=== PATIENT | female | born 1995 | race Caucasian/White ===

== ENCOUNTER 2021-03-20 00:54 | Emergency (ER) | payer OTHER, SELFPAY ==
[2021-03-20 00:59] VITALS: BP 120/71; PULSE 109; RESP 16; TEMP 36.9; O2SAT 100; BMI 31.7
--- NOTE | 2021-03-20 02:21 | EDS_ITS ---
HPI History of Present Illness Chief Complaint: ETOH Intox Informant: patient, friend and EMS Narrative Narrative: Patient was evidently drinking very heavily tonight. She was vomiting. A social security benefits interviewer noted this. They are required to call EMS. EMS then brought her in. Patient denies nausea now. However, patient is confused. She admits to drinking a lot. She states no one hurt her. But she has trouble saying where she is. Evidently she switched from CBD oil to something else recently. She also changed anxiety meds. I have no report or indication of suicidal thoughts. Her friend states she does not know anyone who hurt her. She was just vomiting a lot after heavy drinking at a sorority. [facility] Medical History Anxiety Depression Allergy/AdvReac Type Severity Reaction Status Date / Time shellfish derived Allergy Nausea/Vom/ Verified 03/20/21 01:03 Diarrhea Social History Smoking Status: Never smoker ROS ROS ED ROS Narrative Accurate review of systems is quite limited now. Patient is still a little bit confused. She denies all symptoms and review of systems but I cannot say for sure if this is accurate because of her overall level of confusion. EXAM Physical Exam Const Vital Signs: 03/20/21 00:59 03/20/21 03:14 Temperature 98.5 F Temperature Source Oral Pulse Rate 109 H 109 H Respiratory Rate 16 16 Blood Pressure 120/71 110/57 L Blood Pressure Mean 87 74 Pulse Ox 100 98 Oxygen Delivery Method Room Air Room Air Positive well nourished Constitutional Narrative: Patient is sleeping when I walk in the room. She has aroused with voice and a gentle shake. General Appearance ED: NAD HEENT Negative for trauma or tenderness Eyes PERRL Neck no JVD Resp normal respiratory effort and clear to auscultation bilaterally Cardio regular rate and regular rhythm GI normal to inspection, nondistended, normoactive bowel sounds and non-tender Palpation: soft Back/Spine no CVA tenderness Neuro Neuro Narrative: Patient is arousable to voice and gentle shake. She is oriented to name. Not place or time. She does state that she was drinking a lot tonight. Sensorium / Orientation: orientation impaired Psych Attitude: No agitated Mood & Affect: Negative for depressed, anxious or tearful Skin no rashes or lesions noted MDM MDM MDM Narrative Medical decision making narrative: Patient has been checked a couple times. She arouses. She still is little confused. She seems to be getting slightly better though. My suspicion is that this is a combination of alcohol but may have other chemicals involved. But she is nontoxic. Her vitals are normal. Patient is more alert. She can now tell me she goes to college at [employer]. 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 She told me the year is 2019. She was able to tell me that Yahir is the president. She still seems a little intermittently confused. However she is much improved. Her behavior is more consistent with alcohol and potential other intoxicants rather than just alcohol. But in either case she is arousable doing better and improving. Plan will be to get her home when she is even more alert and we have a safe ride for her. I checked patient again. She is awake. The lights are on. She knows she is in the hospital. She states she just drank a lot last night. Denies any drugs. She is much more lucid awake and appropriate at this time. I think she is safe to go home. She has no complaints. Discharge Plan Triage Chief Complaint: ETOH Intox ED Provider: Cm Núñez Dx/Rx/DC Orders Clinical Impression: Alcohol intoxication, History of nausea and vomiting Instructions: ED Alcohol Intoxication Primary Care Provider: Care Physician,No Primary Referrals: Elizabeth Webb MD [STAFF PHYSICIAN] - As Needed Town Doctor,Out of [NON-STAFF] - Disposition Disposition: Home, Self Care
[2021-03-20 03:14] VITALS: BP 110/57; PULSE 109; RESP 16; O2SAT 98
[2021-03-20 06:14] VITALS: BP 110/76; PULSE 92; RESP 18; O2SAT 99
== END 2021-03-20 06:14 | disposition home or self-care (01) ==
LOC: ED 05:30
PROVIDERS: Emergency Provider Emergency Medicine
DX: F10.129 Alcohol abuse with intoxication, unspecified (principal); Y90.9 Presence of alcohol in blood, level not specified; F32.9 Major depressive disorder, single episode, unspecified; F41.9 Anxiety disorder, unspecified; Z79.899 Other long term (current) drug therapy
CPT/HCPCS: 99284

== ENCOUNTER 2021-06-27 19:14 | Emergency (ER) | payer OTHER, SELFPAY ==
[2021-06-27 19:14] VITALS: BP 132/70; PULSE 107; RESP 18; TEMP 36.8; O2SAT 99; BMI 25.6
--- NOTE | 2021-06-27 20:21 | CM.ED ---
JOSE LUIS Note Referral Source: Case Find Referral Reason: No PCP JOSE LUIS reviewed registration face sheet and noted that patient did not have PCP. JOSE LUIS went into patient's room and spoke to patient. She said that she is a [employer] student and does not have a PCP in [place] but has one back home. JOSE LUIS provided patient with 2020 Healthcare Provider Directory. Patient voiced no issues or concerns. SW remains available. Vicky DAVILA
[2021-06-27] MEDS: 0.9% Normal Saline 1,000 ML 999 ML IV (21:16)
[2021-06-27] MEDS: Ondansetron 4 MG/2 ML Vial IV (21:16)
[2021-06-27 21:21] LABS: Absolute Lymphocyte Count 1.58 X10^3/uL (0.83-4.51); Absolute Neutrophil Count 13.6 X10^3/uL (2.0-7.7); Basophil# 0.09 X10^3/uL; Basophil% 0.6 % (0-1); Hematocrit 40.2 % (37-47); Hemoglobin 12.4 g/dL (12.0-15.0); Lymphocyte # 1.58 X10^3/ul (0.83-4.51); Mean Corp Hgb Conc 30.8 g/dL (32-36); Mean Corpuscular Hgb 21.9 pg (27.0-32.0); Mean Corpuscular Volume 70.9 fL (81-99); Mean Platelet Vol. 10.3 fl (6.2-12.0); Monocyte# 0.51 X10^3/uL; Monocyte% 3.2 % (0-10); NRBC Flagged by Analyzer 0 % (0-5); Neutrophil # 13.57 X10^3/uL (2.7-7.7); Neutrophil % 85.8 % (47-70); Platelet Count 439 K/mm3 (150-450); RBC Distribution Width CV 16.7 % (11.6-14.6); RBC Distribution Width SD 41.5 fl (35.1-43.9); Red Blood Count 5.67 M/mm3 (4.2-5.4); White Blood Count 15.8 K/mm3 (4.4-11.0)
[2021-06-27 21:49] LABS: Bacteria 0 SEEN /hpf (None Seen); Red Blood Cells-Urine 0 SEEN /hpf (0-5); White Blood Cells 0 SEEN /hpf (0-5)
[2021-06-27 21:53] LABS: Color, Urine Yellow (Yellow); Glucose, Dipstick Normal (Normal); Leukocyte Esterase-Dipstick Negative /ul (Negative); Nitrite-Dipstick Negative (Negative); Occult Blood-Urine 10 /ul (Negative); Protein-Dipstick 15 mg/dl (Negative); Urine Bilirubin Dipstick Negative (Negative); Urine Clarity Clear (Clear); Urine Urobilinogen Normal (Normal)
[2021-06-27 21:58] LABS: AST(SGOT) 18 U/L (15-37); Alanine Aminotransfer ALT/SGPT 29 U/L (13-56); Albumin, Serum 3.5 g/dL (3.2-5.0); Alkaline Phosphatase 73 U/L (45-117); Anion Gap 7 (5-15); BUN 8 mg/dL (7-18); BUN/Creat Ratio 12.4 RATIO (10-20); Bilirubin, Direct 0.11 mg/dL (0.00-0.30); Calcium,Total 9.5 mg/dL (8.5-10.1); Chloride 108 mmol/L (98-107); Creatinine, Serum 0.64 mg/dL (0.55-1.02); EST Glomerular Filtration Rate 123 mL/min (>60); Est Glom Filt Rate - Afr Amer 149 mL/min (>60); Estimated Creatinine Clearance 109.97 ml/min; Glucose 96 mg/dL (74-106); Lipase 58 U/L (73-393); Protein, Total 8.5 g/dL (6.4-8.2); Sodium Level 140 mmol/L (136-145)
[2021-06-27 22:22] VITALS: BP 112/78; PULSE 104; RESP 16; O2SAT 96
[2021-06-27 22:47] LABS: Ketone-Dipstick 150 mg/dl (Negative)
[2021-06-27 22:48] LABS: Mucous, Urine 2+ /hpf (<or=2+); Squamous Epithelial Cells - UA 0-5 SEEN /hpf (5-10)
[2021-06-27 22:49] LABS: Internal QC Validated? YES +Cl - CLEAR BKGD; Pregnancy, Urine Negative Negative
--- NOTE | 2021-06-27 23:00 | EDS_ITS ---
HPI History of Present Illness Chief Complaint: Nausea/Vomiting Narrative Narrative: Pt states that she was fine yesterday then began with bouts of N/V this morning. She states that she has not been able to keep anything down and has concern for dehydration. She denies any sick contacts [facility] Medical History (Updated 06/27/21 @ 23:[address] Christopher Blair, DO) Anxiety AVM (arteriovenous malformation) brain Chronic migraine with aura Depression GERD (gastroesophageal reflux disease) Home Medications esomeprazole magnesium 20 mg PO DAILY PRN 06/27/21 [History Last Taken Unknown] ondansetron 4 mg PO Q8H PRN #21 tab 06/27/21 [Rx Last Taken Unknown] ubrogepant [Ubrelvy] 100 mg PO PRN PRN 06/27/21 [History Last Taken Unknown] Allergy/AdvReac Type Severity Reaction Status Date / Time shellfish derived Allergy Nausea/Vom/ Verified 06/27/21 19:16 Diarrhea Social History Smoking Status: Never smoker ROS ROS ED Constitutional Constitutional ED: Denies chills or fever(s) ENT ENT ED: Denies sore throat Cardiovascular Cardiovascular: Denies chest pain Respiratory/Chest Respiratory/Chest: Denies cough or dyspnea Gastrointestinal Gastrointestinal: Reports nausea and vomiting; Denies abdominal pain or diarrhea Genitourinary Genitourinary ED: Denies dysuria Musculoskeletal Musculoskeletal: Denies myalgias Integumentary Denies rash Neurologic Neurologic: Denies headache(s) EXAM Physical Exam Const Vital Signs: 06/27/21 19:14 06/27/21 22:22 Temperature 98.2 F Temperature Source Temporal Pulse Rate 107 H 104 H Respiratory Rate 18 16 Blood Pressure 132/70 H 112/78 Blood Pressure Mean 90 89 Pulse Ox 99 96 Oxygen Delivery Method Room Air Room Air Positive well nourished and well developed General Appearance ED: well developed HEENT Reports dry mucous membranes Mouth ED: Yes dry mucous membranes Mouth: dry mucous membranes Eyes PERRL and EOMs intact bilaterally Neck supple Resp normal respiratory effort and clear to auscultation bilaterally Cardio regular rate and regular rhythm GI non-tender, non-distended and no masses GI Narrative: BS are hyperactive. No rigidity or guarding Palpation: soft Back/Spine no CVA tenderness Extremity normal to inspection Neuro oriented x3 and CN's II-XII intact bilaterally Sensorium / Orientation: alert Motor Exam: strength 5/5 throughout Psych mental status grossly normal Skin no rashes or lesions noted MDM MDM MDM Narrative Medical decision making narrative: Pt presented afebrile and with a nonsurgical abdomen. Therefore, I only felt need to labs. Labs showed a elevated WBC count but otherwise no acute findings. The WBC count was discussed with the patient. We discussed a possible CT scan but she has no pain or fever and does not want the exam obtained. She was hydrated and given zofran and reported feeling better and therefore will be discharged home Lab Data Attestation: I reviewed the patient's lab results. Labs: Laboratory Results - last 24 hr 06/27/21 06/27/21 06/27/21 21:07 21:15 21:40 WBC 15.8 H RBC 5.67 H Hgb 12.4 Hct 40.2 MCV 70.9 L MCH 21.9 L MCHC 30.8 L RDW Std Deviation 41.5 RDW Coeff of Stiven 16.7 H Plt Count 439 MPV 10.3 Immature Gran % (Auto) 0.400 Neut % (Auto) 85.8 H Lymph % (Auto) 10.[address] [facility] % (Auto) 3.2 Eos % (Auto) 0.0 Baso % (Auto) 0.6 Absolute Neuts (auto) 13.6 H Absolute Lymphs (auto) 1.58 Nucleated RBC % 0 Sodium 140 Potassium 4.0 Chloride 108 H Carbon Dioxide 25.0 Anion Gap 7 BUN 8 Creatinine 0.64 Estim Creat Clear Calc 109.97 Est GFR (MDRD) Af Amer 149 Est GFR (MDRD) Non-Af 123 BUN/Creatinine Ratio 12.4 Glucose 96 Calcium 9.5 Total Bilirubin 0.40 Direct Bilirubin 0.11 AST 18 ALT 29 Alkaline Phosphatase 73 Total Protein 8.5 H Albumin 3.5 Globulin 5.0 H Lipase 58 L Urine Color Yellow Urine Clarity Clear Urine pH 6.0 Ur Specific [place] 1.020 Urine Protein 15 H Urine Glucose (UA) Normal Urine Ketones 150 A* Urine Occult Blood 10 H Urine Nitrite Negative Urine Bilirubin Negative Urine Urobilinogen Normal Ur Leukocyte Esterase Negative Urine RBC 0 SEEN Urine WBC 0 SEEN Ur Squamous Epith Cells 0-5 SEEN Urine Bacteria 0 SEEN Urine Mucus 2+ Urine Test Negative Discharge Plan Triage Chief Complaint: Nausea/Vomiting ED Provider: Christopher Blair Dx/Rx/DC Orders Clinical Impression: Nausea & vomiting, Dehydration Instructions: Dehydration, ED Vomiting (Adult) Prescriptions: New ondansetron 4 mg tablet,disintegrating 4 mg PO Q8H PRN (Reason: nausea and vomiting) Qty: 21 RF: 0 No Action Ubrelvy 100 mg tablet 100 mg PO PRN PRN (Reason: Migraine Headache) RF: 0 esomeprazole magnesium 20 mg Capsule,Delayed Release(Dr/Ec) 20 mg PO DAILY PRN (Reason: GERD) RF: 0 Primary Care Provider: Care Physician,No Primary Referrals: Halima Núñez DO [STAFF PHYSICIAN] - 3-5 Days if not improving Care Physician,No Primary [Primary Care Provider] - Disposition Disposition: Home, Self Care Discharge Date/Time: 06/27/21 23:23
== END 2021-06-27 23:23 | disposition home or self-care (01) ==
PROVIDERS: Emergency Provider Emergency Medicine
DX: R11.2 Nausea with vomiting, unspecified (principal); E86.0 Dehydration; K21.9 Gastro-esophageal reflux disease without esophagitis; G43.909 Migraine, unspecified, not intractable, without status migrainosus; Z79.899 Other long term (current) drug therapy
CPT/HCPCS: 80048; 80076; 81001; 81025; 83690; 85025; 96374; 99283; J7030; A4216; J2405

== ENCOUNTER 2022-06-08 07:14 | Emergency (ER) | payer BC, SELFPAY ==
[2022-06-08] VITALS (9 sets, daily range): BP systolic 106–132; BP diastolic 65–87; PULSE 16–105; RESP 14–18; TEMP 36.7–36.8; O2SAT 93–100; BMI 31.4
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
--- NOTE | 2022-06-08 07:41 | ED.RN ---
PER DR. AMOR VERBAL STATMENT, PT DOES NOT REQUIRE A SITTER AT THIS TIME.
[2022-06-08 08:52] LABS: Internal QC Validated? YES +Cl - CLEAR BKGD; Pregnancy, Urine Negative Negative
--- NOTE | 2022-06-08 08:59 | NURSING ---
FAXED FACESHEET TO CRISIS
[2022-06-08 09:01] LABS: Amphetamine Urine VISTA POSITIVE (<1000 ng/mL); Barbiturate Urine VISTA NEGATIVE (< 200 ng/mL); Benzodiazepine Urine VISTA NEGATIVE (< 200 ng/mL); Cocaine Urine VISTA NEGATIVE (< 300 ng/mL); Ecstacy Urine VISTA NEGATIVE (< 500 ng/mL); Methadone Urine VISTA NEGATIVE (< 300 ng/mL); PCP Urine VISTA NEGATIVE (< 25 ng/mL); THC Urine VISTA POSITIVE (< 50 ng/mL); Vista UDS pH Range 6
[2022-06-08] MEDS: Acetaminophen 500 MG Tablet 1000 MG PO (09:22)
[2022-06-08] MEDS: Mag Hydrox/Al Hydrox/Simeth 30 ML UDC PO (09:22)
--- NOTE | 2022-06-08 09:57 | ED.RN ---
PT SPEAKING TO [facility] ON PHONE CURRENTLY.
--- NOTE | 2022-06-08 10:42 | ED.RN ---
DIET ORDER PLACED. THIS RN CALLED FOR TRAY.
--- NOTE | 2022-06-08 11:43 | ED.RN ---
PER [facility] PT HAS BEEN REFERRED TO [facility].
--- NOTE | 2022-06-08 13:07 | NURSING ---
per nurse at [facility] pt was denied placement.
--- NOTE | 2022-06-08 14:45 | EKG12_ITS ---
Test Reason : CLERENCE Blood Pressure : / mmHG Vent. Rate : 098 BPM Atrial Rate : 098 BPM P-R Int : 120 ms QRS Dur : 092 ms QT Int : 360 ms P-R-T Axes : 056 040 050 degrees QTc Int : 459 ms Normal sinus rhythm with sinus arrhythmia Normal ECG Confirmed by YOMI MCNEILL, HAI ([id number]), copy editor CRISPIN CURIEL ([id number]) on 06/10/2022 11:19:12 AM Referred By: Confirmed By:HAI CELAYA MD
--- NOTE | 2022-06-08 14:49 | NURSING ---
NO OLD EKGS
[2022-06-08] MEDS: hydrOXYzine PAM 25 MG Capsule 50 MG PO (15:27)
[2022-06-08 16:16] LABS: Hematocrit 41.5 % (37-47); Mean Corp Hgb Conc 31.3 g/dL (32-36); Mean Corpuscular Hgb 23.9 pg (27.0-32.0); Mean Corpuscular Volume 76.4 fL (81-99); Mean Platelet Vol. 10.7 fl (6.2-12.0); Platelet Count 473 K/mm3 (150-450); RBC Distribution Width SD 46.2 fl (35.1-43.9); Red Blood Count 5.43 M/mm3 (4.2-5.4); White Blood Count 10.7 K/mm3 (4.4-11.0)
[2022-06-08 16:27] LABS: Anion Gap 8 (5-15); BUN 5 mg/dL (7-18); BUN/Creat Ratio 10.3 RATIO (10-20); Calcium,Total 8.9 mg/dL (8.5-10.1); Chloride 107 mmol/L (98-107); Creatinine, Serum 0.48 mg/dL (0.55-1.02); EST Glomerular Filtration Rate 170 mL/min (>60); Est Glom Filt Rate - Afr Amer 206 mL/min (>60); Glucose 101 mg/dL (74-106); Potassium 3.4 mmol/L (3.5-5.1); Sodium Level 140 mmol/L (136-145)
--- NOTE | 2022-06-08 16:39 | NURSING ---
FAXED LABS AND PINK SLIP TO [facility]
--- NOTE | 2022-06-08 18:54 | NURSING ---
CALLED TO SET UP TRANSPORT TO [facility] AND WAS GIVEN A 7AM ETA
[2022-06-09] VITALS (7 sets, daily range): BP systolic 111; BP diastolic 69; PULSE 97; RESP 12–16; TEMP 36.7; O2SAT 99
--- NOTE | 2022-06-09 06:41 | NURSING ---
report called to Brett Rosado, report given to Kiara
[2022-06-09] MEDS: hydrOXYzine PAM 25 MG Capsule 50 MG PO (06:45)
== END 2022-06-09 07:28 ==
PROVIDERS: Emergency Provider Emergency Medicine; Visit Provider Emergency Medicine
DX: R45.851 Suicidal ideations (principal); F32.A Depression, unspecified; K21.9 Gastro-esophageal reflux disease without esophagitis; Z79.899 Other long term (current) drug therapy
CPT/HCPCS: 36415; 80048; 80307; 81025; 82077; 85027; 87811; 93005; 99284